=== PATIENT | female | born 1995 | race Caucasian/White ===

== ENCOUNTER 2022-08-23 04:04 | Day surgery (SDC) | payer OTHER ==
[2022-08-21 15:58] VITALS: BMI 26.9
[2022-08-23] MEDS ORDERED: ONDANSETRON 4 MG/2 ML VIAL IVPUSH PRN (09:25)
[2022-08-23] MEDS ORDERED: oxyCODONE HCL 5 MG TABLET PO PRN (09:25)
[2022-08-23] MEDS ORDERED: IBUPROFEN 800 MG/8 ML IJ IVPB PRN (09:25)
[2022-08-23] MEDS ORDERED: LACTATED RINGERS SOLUTION 1,000 ML IV SCH (09:30)
[2022-08-23] MEDS ORDERED: LIDOCAINE HCL/PF 2% SDV 5ML VIAL ONE (09:42)
[2022-08-23] MEDS ORDERED: PROPOFOL 20 ML ONE (09:42)
[2022-08-23] MEDS ORDERED: MIDAZOLAM HCL 2 MG/2 ML SINGLE DOSE VIAL ONE (09:42)
[2022-08-23] MEDS ORDERED: ONDANSETRON 4 MG/2 ML VIAL ONE (10:12)
[2022-08-23] MEDS ORDERED: DEXAMETHASONE SOD PHOSPHATE 4 MG/1 ML VIAL ONE (10:12)
[2022-08-23 12:22] VITALS: RESP 18
[2022-08-23 13:22] VITALS: BP 111/59; PULSE 65; TEMP 97.7
== END 2022-08-23 12:45 | disposition home or self-care (01) ==
LOC: JASU-SURG 04:04
PROVIDERS: ATTEND Student in an Organized Health Care Education/Training Program
PROC: 0UBC7ZX Excision of Cervix, Via Natural or Artificial Opening, Diagnostic (ICD-10-PCS; principal; 2022-08-23 09:30)
DX: D06.9 Carcinoma in situ of cervix, unspecified (principal)
CPT/HCPCS: 81025; 88305-TC; 88307-TC; 88341-TC; 88342-TC; 94760